=== PATIENT | male | born 1990 | race African-American/Black ===

== ENCOUNTER 2017-06-01 12:25 | Emergency (ER) | payer BC ==
[~2017-06-01] VITALS: Ht 172.7 cm; Wt 74.8 kg
[2017-06-01 12:32] VITALS: BP 127/75
== END 2017-06-01 13:04 | disposition home or self-care (01) ==
LOC: ER 12:27
DX: S63.612A Unspecified sprain of right middle finger, initial encounter (principal); V43.52XA Car driver injured in collision with other type car in traffic accident, initial encounter; Y93.89 Activity, other specified; Y92.89 Other specified places as the place of occurrence of the external cause; Y99.9 Unspecified external cause status
CPT/HCPCS: 29130; 99283; A4606; A6402; Z7610

== ENCOUNTER 2017-06-03 10:17 | Emergency (ER) | payer BC ==
[~2017-06-03] VITALS: Ht 175.3 cm; Wt 65.8 kg
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
[2017-06-03] MEDS ORDERED: KETOROLAC TROMETHAMINE INJ 30 MG/ML VIAL ONE (10:52)
--- NOTE | 2017-06-03 10:59 | NUR ---
PT TO XRAY
[2017-06-03] MEDS ORDERED: KETOROLAC TROMETHAMINE INJ 30 MG/ML VIAL IM ONE (11:00)
--- NOTE | 2017-06-03 12:04 | NUR ---
Patient discharged to home in stable condition. Written and verbal after care instructions given. Patient verbalizes understanding of instruction.
[2017-06-03 12:07] VITALS: BP 125/71
== END 2017-06-03 12:08 | disposition home or self-care (01) ==
LOC: ER 10:21
DX: S13.4XXA Sprain of ligaments of cervical spine, initial encounter (principal); V49.40XA Driver injured in collision with unspecified motor vehicles in traffic accident, initial encounter; Y93.89 Activity, other specified; Y92.413 State road as the place of occurrence of the external cause; Y99.8 Other external cause status
CPT/HCPCS: 72040; 96372; 99284; A4606; J1885; Z7610